=== PATIENT | female | born 1995 | race Caucasian/White ===

== ENCOUNTER 2019-01-03 19:47 | Inpatient (IN) | payer OTHER, MEDICAID ==
[2019-01-03] MEDS ORDERED: Lactated Ringers 1000 ML Bag* 1,000 ML IV ONE (21:55)
[2019-01-03] MEDS ORDERED: Buffered Lidocaine 1% SYRIN* 1 ML/SYRINGE INTRADERM ONE (21:55)
[2019-01-03] MEDS ORDERED: Lactated Ringers 1000 ML Bag* 1,000 ML IV SCH (22:00)
--- NOTE | 2019-01-03 22:04 | HP ---
General Information - Reason for Visit pt reports ctx since 10am, irregular but getting stronger. - General Information Maternal Age: 23 Grav: 2 Para: 1 SAB: 0 IEA: 0 Estimated Due Date: 01/13/19 Determined By: Early Ultrasound Gestational Age in Weeks/Days: 38w4d Maternal Blood Type and Rh: AB Positive - Results this Serology/RPR Result: Non-Reactive Rubella Result: Immune HBsAg Result: Negative HIV Result: Negative GBS Culture Result: Negative Past Medical History Delivery History: Hx Uncomplicated Vaginal Delivery Pertinent Past Medical History: See Records - history of PPD, benign heart murmur Pertinent Past Surgical History: None Pertinent Family History: See Records - M:HTN; MGM: ovarian CA, m aunt : ovarian CA - Antepartal Records Antepartal Records: Reviewed, Uncomplicated Review of Systems Constitutional: Uncomfortable CV Complaint: No Respiratory: Shortness of Breath: No Gastrointestinal: No Nausea/Vomiting, Normal Bowel Movement Genitourinary: No Dysuria, No Bleeding, No Leaking Fluid Musculoskeletal: Contractions Neurological: No Headache, No Visual Changes Movement: Normal Exam T:97.3, P:107, R:16, BP:125/75, O2:100 - Measurements Height: 5 ft 5 in Weight: 192 lb Weight in lbs: [phone] Body Mass Index (BMI): 31.9 Pre- Weight: 185 lb Weight Gained This : 7 lbs and 0 ozs - Exam Breast: Breast Exam Deferred CVA: No CVA Tenderness Extremities: No Edema Heart: Normal Rhythm/Heart Sounds HEENT: No Significant Findings Lungs: Clear Bilaterally Rectal: Rectal Exam Deferred Reflexes: DTR 2+ Thyroid: No Thyromegaly - Abdominal Exam Abdomen Exam: Fundal Height Consistent with Dates - Ultrasound/Biophysical Profile Ultrasound Status: Not Done Targeted Exam Findings Estimated Weight: 7lbs 8oz Cervical Exam: 5cm Effacement: 90% Station: -1 Presenting Part: Vertex Membrane Status: Intact Bleeding/Discharge: Bloody Show EFM Findings - External Monitor Findings Baseline Heart Rate: 140 External Monitor Findings: Accelerations Present, No Pattern of Variable or Late Decelerations, Variability Moderate, Baseline Stable Contractions: Regular, Moderate, 45-90 Seconds Contraction Frequency: 3-4 Assessment/Plan - Assessment 23 y.o. 38w4d EGA, active labor - Plan Plan: Admit - Anticipate Vaginal Delivery - Date/Time of Admission Date of Admission: 01/03/19 Time of Admission: 22:15
[2019-01-03 22:38] LABS: Urine Benzodiazepine Screen None Detected (None Detect); Urine Opiates Screen None Detected (None Detect)
[2019-01-03 22:58] LABS: ABS Basophils 0.1 10^3/ul (0-0.2); ABS Lymphocytes 1.9 10^3/ul (1.0-4.8); ABS Monocytes 1.2 10^3/ul (0-0.8); ABS Neutrophils 12.9 10^3/ul (1.5-7.7); Eosinophil % 0.3 %; Hematocrit 35 % (35-47); Hemoglobin 12.2 g/dL (12.0-16.0); Lymphocyte % 11.5 %; Mean Corpuscular HGB Conc 35 g/dL (31-36); Mean Corpuscular Hemoglobin 30 pg (27-31); Mean Corpuscular Volume 85 fL (80-97); Mean Platelet Volume 7.2 fL (7.4-10.4); Platelet Count 227 10^3/uL (150-450); Red Blood Count 4.08 10^6 /uL (3.70-4.87); Red Cell Distribution Width 14 % (10-15); White Blood Count 16.1 10^3/uL (3.5-10.8)
[2019-01-03] MEDS ORDERED: Ondansetron INJ* 2 MG/ML VIAL ONE (23:41)
[2019-01-03] MEDS ORDERED: fentaNYL* 50 MCG/ML 2 ML VIAL (100 MCG VIAL) ONE (23:56)
[2019-01-04] MEDS ORDERED: Oxytocin in LR* 20 UNITS/1,000 ML BAG IVPB ONE (00:44)
[2019-01-04] MEDS ORDERED: Witch Hazel PAD* JAR TOPICAL PRN (00:47)
[2019-01-04] MEDS ORDERED: Dibucaine 1% 28.35 GM TUBE PR PRN (00:47)
[2019-01-04] MEDS ORDERED: Glycerin ADULT SUPP PR PRN (00:47)
--- NOTE | 2019-01-04 00:57 | PROCNOTE ---
[facility] OB: Delivery Note - Delivery A Date of : 01/04/19 Time of : 00:37 Sex: Male Score 1 Minute: 8 Score 5 Minutes: 9 Gestational Age in Weeks and Days at Delivery: 38 Weeks and 5 Days Delivery Method: Spontaneous Vaginal Labor: Spontaneous Amniotic Fluid: Meconium Estimated Blood Loss: 200 Anesthesia/Analgesia: IM/IV, Nitrous-Labor Delivered By: Charu Moss - Nursery Level of Nursery: Regular/Bedside - Perineum Perineal Injury: None/Intact Perineal Repair: None - Events Delivery Events of Note: Pitocin Only After Delivery
[2019-01-04] MEDS ORDERED: Lactated Ringers 1000 ML Bag* 1,000 ML IV SCH (01:00)
[2019-01-04] MEDS ORDERED: Oxytocin in LR* 20 UNITS/1,000 ML BAG IVPB SCH (01:00)
[2019-01-04] MEDS: Ibuprofen TAB* 600 MG PO PRN ×3 (02:53→20:43)
[2019-01-04] MEDS: Simethicone TAB* 80 MG TAB.CHEW PO SCH ×2 (09:50→14:56)
[2019-01-04] MEDS: Acetaminophen TAB* 325 MG PO PRN ×3 (09:51→19:06)
[2019-01-04] MEDS: Docusate CAP* 100 MG PO SCH ×3 (09:51→20:43)
[2019-01-04] MEDS ORDERED: FLUoxetine CAP* 20 MG PO ONE (15:53)
[2019-01-05] MEDS: Ibuprofen TAB* 600 MG PO PRN ×2 (02:44→08:17)
[2019-01-05 06:59] LABS: ABS Basophils 0.1 10^3/ul (0-0.2); ABS Eosinophils 0.2 10^3/ul (0-0.6); ABS Lymphocytes 3.1 10^3/ul (1.0-4.8); ABS Monocytes 0.8 10^3/ul (0-0.8); ABS Neutrophils 6.6 10^3/ul (1.5-7.7); Eosinophil % 1.8 %; Hematocrit 31 % (35-47); Hemoglobin 10.9 g/dL (12.0-16.0); Mean Corpuscular HGB Conc 35 g/dL (31-36); Mean Corpuscular Hemoglobin 30 pg (27-31); Mean Corpuscular Volume 87 fL (80-97); Platelet Count 194 10^3/uL (150-450); Red Blood Count 3.61 10^6 /uL (3.70-4.87); Red Cell Distribution Width 14 % (10-15); White Blood Count 10.7 10^3/uL (3.5-10.8)
[2019-01-05 07:18] VITALS: BP 106/61
[2019-01-05] MEDS: Docusate CAP* 100 MG PO SCH (08:15)
[2019-01-05] MEDS ORDERED: Ferrous Gluconate TAB* 324 MG TAB PO SCH (09:00)
[2019-01-05] MEDS ORDERED: FLUoxetine CAP* 20 MG PO SCH (09:00)
[2019-01-05] MEDS ORDERED: Varicella Virus Vaccine Live* 0.5 ML VIAL SUBCUT ONE (11:00)
[2019-01-05] MEDS ORDERED: Tetan/Diph/Pertus SYR(Tdap)* 0.5 ML SYR(BOOSTRIX) use SYR IM ONE (11:00)
== END 2019-01-05 13:00 | disposition home or self-care (01) | DRG 807 ==
LOC: MCHOBOUT 19:47 → MCHOB 22:18
PROVIDERS: ADMIT Midwife; ATTEND Midwife
PROC: 10E0XZZ Delivery of Products of Conception, External Approach (ICD-10-PCS; principal; 2019-01-04)
PROC: 10907ZC Drainage of Amniotic Fluid, Therapeutic from Products of Conception, Via Natural or Artificial Opening (ICD-10-PCS; 2019-01-04)
PROC: 4A1HXCZ Monitoring of Products of Conception, Cardiac Rate, External Approach (ICD-10-PCS; 2019-01-04)
DX: O99.89 Other specified diseases and conditions complicating pregnancy, childbirth and the puerperium (principal); O77.0 Labor and delivery complicated by meconium in amniotic fluid; O99.344 Other mental disorders complicating childbirth; F32.9 Major depressive disorder, single episode, unspecified; R01.1 Cardiac murmur, unspecified; Z37.0 Single live birth; Z3A.38 38 weeks gestation of pregnancy; Z88.1 Allergy status to other antibiotic agents
CPT/HCPCS: 36415; 80307; 85025; 86850; 86900; 86901; 90715; A9270-GY; J2405; J3010

== ENCOUNTER 2021-09-24 18:30 | Inpatient (IN) ==
[2021-09-24] MEDS ORDERED: Lactated Ringers 1000 ml BAG 1,000 ML IV ONE (18:37)
[2021-09-24] MEDS ORDERED: Buffered Lidocaine 1% SYRIN 1 ml INTRADERM ONE (18:37)
[2021-09-24] MEDS ORDERED: Lactated Ringers 1000 ml BAG 1,000 ML IV SCH ×2 (19:00→23:00)
[2021-09-24 19:21] LABS: Urine Benzodiazepine Screen None Detected (None Detect); Urine Cannabinoids Screen None Detected (None Detect); Urine Opiates Screen None Detected (None Detect)
[2021-09-24] MEDS ORDERED: fentaNYL 100 mcg/2 ml 50 MCG/ML VIAL IV SLOW PU PRN (21:37)
[2021-09-24] MEDS ORDERED: Oxytocin in LR 20 UNITS/1,000 ML BAG IVPB SCH (22:00)
[2021-09-24] MEDS ORDERED: Oxytocin in LR 20 UNITS/1,000 ML BAG IVPB ONE (22:03)
[2021-09-24 22:22] LABS: ABS Eosinophils 0.1 10^3/ul (0-0.6); ABS Neutrophils 11.1 10^3/ul (1.5-7.7); Hematocrit 38 % (35-47); Hemoglobin 13.6 g/dL (12.0-16.0); Lymphocyte % 13.8 %; Mean Corpuscular HGB Conc 36 g/dL (31-36); Mean Corpuscular Hemoglobin 30 pg (27-31); Mean Corpuscular Volume 86 fL (80-97); Mean Platelet Volume 7.2 fL (7.4-10.4); Nucleated Red Blood Cells % 0.1; Platelet Count 224 10^3/uL (150-450); Red Blood Count 4.48 10^6 /uL (3.70-4.87); Red Cell Distribution Width 17 % (10-15); White Blood Count 14.2 10^3/uL (3.5-10.8)
[2021-09-24] MEDS ORDERED: Witch Hazel PAD JAR TOPICAL PRN (22:45)
[2021-09-24] MEDS ORDERED: Oxytocin 10 UNITS/ML 1 ML VIAL IM ONE (22:45)
[2021-09-24] MEDS ORDERED: Dibucaine 1% OINT 28.35 GM TUBE PR PRN (22:45)
[2021-09-25] MEDS ORDERED: Oxytocin 10 UNITS/ML 1 ML VIAL ONE (00:26)
[2021-09-25 07:36] LABS: ABS Eosinophils 0.1 10^3/ul (0-0.6); ABS Lymphocytes 1.8 10^3/ul (1.0-4.8); ABS Neutrophils 9.5 10^3/ul (1.5-7.7); Eosinophil % 0.9 %; Hematocrit 29 % (35-47); Hemoglobin 9.9 g/dL (12.0-16.0); Lymphocyte % 14.8 %; Mean Corpuscular HGB Conc 35 g/dL (31-36); Mean Corpuscular Hemoglobin 30 pg (27-31); Mean Corpuscular Volume 86 fL (80-97); Mean Platelet Volume 7.3 fL (7.4-10.4); Platelet Count 178 10^3/uL (150-450); Red Blood Count 3.32 10^6 /uL (3.70-4.87); Red Cell Distribution Width 18 % (10-15); White Blood Count 12.5 10^3/uL (3.5-10.8)
[2021-09-26 07:50] VITALS: BP 111/71
== END 2021-09-26 13:08 | disposition home or self-care (01) | DRG 807 ==
LOC: MCHOBOUT 18:30 → MCHOB 18:57
PROVIDERS: ADMIT Advanced Practice Midwife; ATTEND Advanced Practice Midwife